=== PATIENT | male | born 2000 | race Hispanic/Latino ===

== ENCOUNTER 2022-03-29 11:24 | Emergency (ER) | payer BC, SELFPAY ==
--- NOTE | 2022-03-29 11:57 | EDPHYS ---
Physician Documentation [facility] Name: Mark Degroot Age: 22 yrs Sex: Male : 2000 Arrival Date: 03/29/2022 Time: 11:26 Bed Waiting Private MD: ED Physician Doc Oglesby HPI: 03/29 11:57 This 22 yrs old Male presents to ER via Ambulatory with complaints of Insect pm1 Bite. 11:57 The patient's rash thought to be caused by possible insect bites. Patient reports that pm1 there are ants in the area of his bed but did not see any ants biting him. The rash is located on the back, chest, abdomen, right arm and left arm. The rash can be described as papular. Onset: The symptoms/episode began/occurred this morning. Associated signs and symptoms: Pertinent negatives: fever, itching, Pain. Severity of symptoms: in the emergency department the symptoms are unchanged. Treatment given at home: None. The patient has not experienced similar symptoms in the past. The patient has not recently seen a physician. Historical: - Allergies: 11:42 No Known Allergies; ap3 - Home Meds: 11:42 None [Active]; ap3 - PMHx: 11:42 None; ap3 - Immunization history:: Client reports having NOT received the Covid vaccine. - Social history:: Smoking status: Patient denies any tobacco usage or history of. Patient uses street drugs, marijuana. ROS: 11:57 Constitutional: Negative for fever, chills, and weight loss, Cardiovascular: Negative pm1 for chest pain, palpitations, and edema, Respiratory: Negative for shortness of breath, cough, wheezing, and pleuritic chest pain, MS/Extremity: Negative for injury and deformity. 11:57 Neuro: Negative for headache, weakness, numbness, tingling, and seizure. 11:57 Skin: Positive for rash, of the right arm and abdomen and chest and back and left arm. 11:57 All other systems are negative. Exam: 11:57 Constitutional: This is a well developed, well nourished patient who is awake, alert, pm1 and in no acute distress. Head/Face: Normocephalic, atraumatic. 11:57 Cardiovascular: Exam negative for acute changes, Rate: normal, Rhythm: regular, Pulses: no pulse deficits are appreciated. 11:57 Respiratory: Exam negative for acute changes, respiratory distress, shortness of breath. 11:57 Skin: Appearance: normal except for affected area, consistent with contact dermatitis, on the left arm and abdomen and chest and back and right arm. Vital Signs: 11:41 Pulse 83; Resp 16; Temp 98.8; Pulse Ox 99% ; Weight 81.65 kg; Height 5 ft. 4 in. ap3 (162.56 cm); 11:47 BP 112 / 73; ap3 11:41 Body Mass Index 30.90 (81.65 kg, 162.56 cm) ap3 MDM: 11:56 Data reviewed: vital signs. Data interpreted: Pulse oximetry: on room air is 99 %. pm1 Interpretation: normal. Counseling: I had a detailed discussion with the patient and/or guardian regarding: the historical points, exam findings, and any diagnostic results supporting the discharge/admit diagnosis, the need for outpatient follow up, for definitive care, a heel lift gouger, to return to the emergency department if symptoms worsen or persist or if there are any questions or concerns that arise at home. 11:57 Patient medically screened. pm1 Administered Medications: No medications were administered Disposition: 18:43 Co-signature as Attending Physician, Doc Oglesby MD. rn Disposition Summary: 03/29/22 11:57 Discharge Ordered Location: Home pm1 Problem: new pm1 Symptoms: have improved pm1 Condition: Stable pm1 Diagnosis - Rash and other nonspecific skin eruption pm1 Followup: pm1 - With: Emergency Department - When: As needed - Reason: Worsening of condition Followup: pm1 - With: Private Physician - When: 2 - 3 days - Reason: Recheck today's complaints, Continuance of care, Re-evaluation by your physician Discharge Instructions: - Discharge Summary Sheet pm1 - Contact Dermatitis pm1 - Rash, Adult pm1 - Scabies, Adult pm1 Forms: - Medication Reconciliation Form pm1 - Thank You Letter pm1 - Antibiotic Education pm1 - Prescription Opioid Use pm1 Prescriptions: - Elimite 5 % Topical Cream - apply 1 application by TOPICAL route one time Wash after 12 hours.; 60 gram; pm1 Refills: 0, Product Selection Permitted - Doxycycline Hyclate 100 mg Oral Tablet - take 1 tablet by ORAL route every 12 hours; 20 tablet; Refills: 0, Product pm1 Selection Permitted - Medrol (Dewayne) 4 mg Oral Tablets, Dose Pack - take 1 tablet by ORAL route as directed - follow package instructions; 1 pm1 packet; Refills: 0, Product Selection Permitted Signatures: Doc Oglesby MD MD rn Marinas, Patrick, NP USER ACCEPTANCE TESTER pm1 Heather Chavarria RN RN ap3
--- NOTE | 2022-03-29 11:57 | ER ---
Nurse's Notes [facility] Name: Mark Degroot Age: 22 yrs Sex: Male : 2000 Arrival Date: 03/29/2022 Time: 11:26 Bed Waiting Private MD: Diagnosis: Rash and other nonspecific skin eruption Presentation: 03/29 11:41 Chief complaint: Patient states: he went to bed last night and didn't have any bites, ap3 woke up this morning with insect bites on his back and trunk. patient states he saw what looks like ants on his bed. Coronavirus screen: At this time, the client does not indicate any symptoms associated with coronavirus-19. Ebola Screen: No symptoms or risks identified at this time. Initial Sepsis Screen: Does the patient meet any 2 criteria? No. Patient's initial sepsis screen is negative. Does the patient have a suspected source of infection? No. Patient's initial sepsis screen is negative. Risk Assessment: Do you want to hurt yourself or someone else? Patient reports no desire to harm self or others. Onset of symptoms was March 29, 2022. 11:41 Method Of Arrival: Ambulatory ap3 11:41 Acuity: JEFF 4 ap3 Triage Assessment: 11:42 Bite description: bite sustained to back, chest, abdomen, right arm and left arm is ap3 from insect by an unknown animal, animal information: vaccination(s) is not applicable. General: Appears in no apparent distress. Behavior is calm, cooperative, appropriate for age. Pain: Denies pain. Neuro: Level of Consciousness is awake, alert, obeys commands, Oriented to person, place, time, situation, Gait is steady. Cardiovascular: Patient's skin is warm and dry. Respiratory: Airway is patent Respiratory effort is even, unlabored. Derm: Rash noted that is itchy. Historical: - Allergies: 11:42 No Known Allergies; ap3 - Home Meds: 11:42 None [Active]; ap3 - PMHx: 11:42 None; ap3 - Immunization history:: Client reports having NOT received the Covid vaccine. - Social history:: Smoking status: Patient denies any tobacco usage or history of. Patient uses street drugs, marijuana. Screenin:44 Abuse screen: Denies threats or abuse. Nutritional screening: No deficits noted. ap3 Tuberculosis screening: No symptoms or risk factors identified. Fall Risk None identified. Assessment: 11:44 Derm: Skin TNTC insect bites Skin is pink, warm \T\ dry. ap3 Vital Signs: 11:41 Pulse 83; Resp 16; Temp 98.8; Pulse Ox 99% ; Weight 81.65 kg; Height 5 ft. 4 in. ap3 (162.56 cm); 11:47 BP 112 / 73; ap3 11:41 Body Mass Index 30.90 (81.65 kg, 162.56 cm) ap3 ED Course: 11:26 Patient arrived in ED. rg4 11:31 Jon Walsh NP is PHCP. pm1 11:32 Doc Oglesby MD is Attending Physician. pm1 11:42 Triage completed. ap3 11:44 Arm band placed on left wrist. ap3 11:44 Patient has correct armband on for positive identification. Adult w/ patient. Pulse ox ap3 on. NIBP on. Door closed. Noise minimized. 12:32 No provider procedures requiring assistance completed. Patient did not have IV access ap3 during this emergency room visit. Administered Medications: No medications were administered Medication: 12:32 VIS not applicable for this client. ap3 Outcome: 11:57 Discharge ordered by . pm1 12:32 Discharged to home ambulatory. ap3 12:32 Condition: good 12:32 Discharge instructions given to patient, Instructed on discharge instructions, follow up and referral plans. medication usage, Demonstrated understanding of instructions, follow-up care, medications, Prescriptions given X 3. 12:32 Patient left the ED. ap3 Signatures: Jon Walsh NP [employer] PRACTITIONER pm1 Ashlee Herron rg4 Heather Chavarria RN RN ap3
[2022-03-29 12:54] VITALS: TEMP 98.8; O2SAT 99
[2022-03-29 12:55] VITALS: BP 112/73
== END 2022-03-29 12:32 | disposition home or self-care (01) ==
LOC: ER 11:24
DX: R21 Rash and other nonspecific skin eruption (principal)
CPT/HCPCS: 99283